=== PATIENT | female | born 1940 | race Caucasian/White ===

== ENCOUNTER 2019-05-17 12:34 | Observation (INO) ==
[2019-05-17] MEDS ORDERED: *HR* Dextrose 50 % in Water (Syg) 50 ML SYRINGE IVP ONE (12:43)
[2019-05-17 13:04] LABS: Basophils # 0.1 K/mcL (0.0-0.2); Basophils % 0.5 %; Eosinophils # 0.1 K/mcL (0.0-0.6); Eosinophils % 0.7 %; Hematocrit 43.6 % (35.3-44.9); Hemoglobin 14.6 g/dL (11.5-15.4); INR 0.9; Immature Granulocytes % 0.3 % (0-4); Lymphocytes # 2.5 K/mcL (0.6-4.6); Lymphocytes % 20.9 %; Mean Corpuscular HGB Conc 33.5 g/dL (31.6-35.5); Mean Corpuscular Hemoglobin 30.6 pg (28.0-33.3); Mean Corpuscular Volume 91.4 fL (83.0-100.0); Mean Platelet Volume 9.5 fL (9.4-12.4); Monocytes # 0.7 K/mcL (0.0-1.3); Monocytes % 5.8 %; Neutrophils # 8.7 K/mcL (1.6-8.9); Platelet Count 528 K/mcL (140-400); Prothrombin Time 10.6 Seconds (9.4-12.1); Red Blood Count 4.77 M/mcL (3.82-4.97); Red Cell Distribution Width 14.4 % (11.5-14.5); Segmented Neutrophils % 71.8 %; White Blood Count 12.2 K/mcL (4.3-11.1)
[2019-05-17] MEDS ORDERED: *HR* Dextrose 50 % in Water (Syg) 50 ML SYRINGE ONE (13:04)
[2019-05-17 13:06] LABS: Activated Partial Thrombo Time 29.3 Seconds (26.0-36.0)
[2019-05-17 13:18] LABS: Bilirubin,Urine Negative (Negative); Blood,Urine Negative (Negative); Clarity,Urine Clear (Clear); Color,Urine Yellow (Yellow); Glucose,Urine (UA) Normal (Normal); Ketones,Urine Negative (Negative); Leukocyte Esterase,Urine Negative (Negative); Nitrite,Urine Negative (Negative); Protein,Urine Negative (Neg-Trace); Specific Gravity,Urine 1.013 (1.010-1.025); Urobilinogen,Urine Normal (Normal)
[2019-05-17 13:19] LABS: BUN/Creatinine Ratio 12 (6-26); Blood Urea Nitrogen 14 mg/dL (8-23); Calcium 9.8 mg/dL (8.6-10.3); Carbon Dioxide 26 mEq/L (23-29); Chloride 100 mEq/L (98-107); Glucose 52 mg/dL (70-105); Lipase 16 Units/L (11-82); Osmolality,Calculated 280 (280-300); Potassium 4.1 mEq/L (3.5-5.1); Sodium 136 mEq/L (136-145); Troponin I < 0.03 ng/mL (< 0.04); eGFR For African Americans 56 (> 60); eGFR For Non-African Americans 46 (> 60)
[2019-05-17] MEDS ORDERED: D5% in Lactated Ringers 1,000 ML IVC SCH (18:15)
[2019-05-17] MEDS ORDERED: Acetaminophen 325 MG TABLET PO PRN (21:36)
[2019-05-18] MEDS ORDERED: *HR* Heparin 5,000 UNIT/ML VIAL SQ SCH (06:00)
[2019-05-18 09:08] VITALS: BP 151/79
== END 2019-05-18 13:46 | disposition home or self-care (01) ==
LOC: EMEROOARM 12:34 → 3BNU 12:34
PROVIDERS: ADMIT Internal Medicine; ATTEND Internal Medicine